=== PATIENT | female | born 1935 | race Hispanic/Latino ===

== ENCOUNTER 2017-04-22 10:47 | Outpatient (CLI) | payer MEDICARE ==
--- NOTE | 2017-04-22 11:16 | XRay Report ---
LEFT FOOT RADIOGRAPHS INDICATION: Foot pain. COMPARISON: None similar. FINDINGS: AP, lateral and oblique left foot radiographs demonstrate degenerative interphalangeal joint narrowing and spurring. No focal suspicious erosions. Intact articulation. Unremarkable soft tissues. Slight atherosclerotic calcifications noted anterior to the ankle. Small dorsal calcaneal spur. Possible osteopenia. CONCLUSION: No acute left foot bony abnormality with few degenerative changes noted, as above. Thank you for the opportunity to participate in this patient's care.
== END 2017-04-22 10:48 | disposition home or self-care (01) ==
LOC: SPVIMAG 10:47
PROVIDERS: ATTEND Internal Medicine
DX: M77.32 Calcaneal spur, left foot (principal); M25.871 Other specified joint disorders, right ankle and foot

== ENCOUNTER 2018-07-07 15:57 | Outpatient (CLI) | payer MEDICARE ==
--- NOTE | 2018-07-08 09:10 | XRay Report ---
RIGHT HAND, 3 views: History: Right hand pain. Laceration. There is mild osteopenia. Mild diffuse joint space narrowing is noted throughout the fingers consistent with mild osteoarthritis. There are moderate to severe degenerative changes at the base of the thumb. No evidence for displaced fracture, erosive joint pathology or soft tissue foreign body. IMPRESSION: Osteopenia. Osteoarthritic changes. No acute abnormality appreciated.
== END 2018-07-07 15:58 | disposition home or self-care (01) ==
LOC: XRAY 15:57
PROVIDERS: ATTEND Internal Medicine
DX: M19.041 Primary osteoarthritis, right hand (principal); M85.841 Other specified disorders of bone density and structure, right hand